=== PATIENT | female | born 1950 | race Caucasian/White ===

== ENCOUNTER 2016-11-29 11:20 | Inpatient (IN) | payer MEDICARE, OTHER ==
[~2016-11-29] VITALS: Ht 149.9 cm; Wt 76.2 kg
[~2016-11-29 11:20] MED LIST: ASPIR 8181 MG PO; COREG 3.125M3.125 MG PO; ISOSORBIDE MONO30 MG PO; LASIX20 MG PO; LIORESAL TAB 1010 MG PO; LIPITOR TAB 2020 MG PO; PLAVIX 75 MG TA75 MG PO; REMERON30 MG PO; SYNTHROID50 MCG PO; TYLENOL W/CODEIN1 E1 PO; URECHOLINE10 MG PO; ZOLOFT100 MG PO
[2016-11-29 13:55] LABS: HEMOGLOBIN 13.8 gm/dl (12.3-15.3); RED BLOOD COUNT 4.82 M/UL (4.00-5.10); WHITE BLOOD COUNT 9.2 K/UL (4.5-11.0)
[2016-11-30 04:23] LABS: HEMOGLOBIN 12.7 gm/dl (12.3-15.3); RED BLOOD COUNT 4.55 M/UL (4.00-5.10); WHITE BLOOD COUNT 7.5 K/UL (4.5-11.0)
[2016-11-30] MEDS ORDERED: BRILINTA90 MG PO (12:04)
[2016-11-30] MEDS ORDERED: INFUVITE ADULT PO (12:04)
[2016-11-30 20:50] LABS: HEMOGLOBIN 12.8 gm/dl (12.3-15.3); RED BLOOD COUNT 4.57 M/UL (4.00-5.10); WHITE BLOOD COUNT 9.9 K/UL (4.5-11.0)
[2016-12-01 04:34] LABS: HEMOGLOBIN 12.3 gm/dl (12.3-15.3); RED BLOOD COUNT 4.38 M/UL (4.00-5.10); WHITE BLOOD COUNT 9.1 K/UL (4.5-11.0)
[2016-12-02 04:29] LABS: HEMOGLOBIN 13.2 gm/dl (12.3-15.3); RED BLOOD COUNT 4.58 M/UL (4.00-5.10); WHITE BLOOD COUNT 7.9 K/UL (4.5-11.0)
[2016-12-03 04:33] LABS: HEMOGLOBIN 12.8 gm/dl (12.3-15.3); RED BLOOD COUNT 4.63 M/UL (4.00-5.10); WHITE BLOOD COUNT 7.3 K/UL (4.5-11.0)
[2016-12-04 04:20] LABS: HEMOGLOBIN 13.2 gm/dl (12.3-15.3); RED BLOOD COUNT 4.74 M/UL (4.00-5.10); WHITE BLOOD COUNT 8.4 K/UL (4.5-11.0)
[2016-12-04] MEDS ORDERED: INVANZ 1 GM VIAL1 GM IM (14:22)
[2016-12-04] MEDS ORDERED: HABITROL 21 MG P1 EA TD (14:28)
[2016-12-04] MEDS ORDERED: FLOMAX 0.4 MG0.4 MG PO (14:29)
== END 2016-12-04 15:38 | disposition home health service (06) | DRG 871 ==
LOC: ER1 11:20 → ZEROF 16:17 → PROG CARE 11-30 16:45
PROVIDERS: Emergency Medicine; Internal Medicine Interventional Cardiology; Internal Medicine Nephrology; ADMIT Internal Medicine Infectious Disease
DX: A41.51 Sepsis due to Escherichia coli [E. coli] (principal); I21.4 Non-ST elevation (NSTEMI) myocardial infarction; J69.0 Pneumonitis due to inhalation of food and vomit; J96.01 Acute respiratory failure with hypoxia; N17.9 Acute kidney failure, unspecified; N39.0 Urinary tract infection, site not specified; I50.32 Chronic diastolic (congestive) heart failure; N20.1 Calculus of ureter; S62.101P Fracture of unspecified carpal bone, right wrist, subsequent encounter for fracture with malunion; I25.10 Atherosclerotic heart disease of native coronary artery without angina pectoris; J44.9 Chronic obstructive pulmonary disease, unspecified; E03.9 Hypothyroidism, unspecified; E78.5 Hyperlipidemia, unspecified; I10 Essential (primary) hypertension; Z95.1 Presence of aortocoronary bypass graft; Z90.710 Acquired absence of both cervix and uterus; Z99.81 Dependence on supplemental oxygen; Z88.8 Allergy status to other drugs, medicaments and biological substances; F17.210 Nicotine dependence, cigarettes, uncomplicated; I25.2 Old myocardial infarction; E86.0 Dehydration; E87.6 Hypokalemia; B96.89 Other specified bacterial agents as the cause of diseases classified elsewhere; B96.20 Unspecified Escherichia coli [E. coli] as the cause of diseases classified elsewhere; N31.9 Neuromuscular dysfunction of bladder, unspecified; Z95.5 Presence of coronary angioplasty implant and graft; Z79.82 Long term (current) use of aspirin; Z79.899 Other long term (current) drug therapy; Z82.3 Family history of stroke
CPT/HCPCS: ECHO; 36415; 36600; 71010; 71020; 73110; 80048; 80053; 81001; 82436; 82550; 82553; 82570; 82803; 83605; 83735; 83874; 83880; 84132; 84133; 84156; 84300; 84443; 84481; 84484; 85025; 85027; 85610; 85730; 87040; 87077; 87086; 87186; 93005; 93306; 94640; 94664; 96365; 96367; 96375; 99291; 99292; J0696; J1335; J1644; J1940; J1956; J2920; J2930; J7030; J7040; J7050; Q0162

== ENCOUNTER → 2017-02-08 | Outpatient (CLI) | payer MEDICARE, OTHER ==
[~2017-02-08] MED LIST changes: +BRILINTA90 MG PO; +FLOMAX 0.4 MG0.4 MG PO; +HABITROL 21 MG P1 EA TD; +INFUVITE ADULT PO; +INVANZ 1 GM VIAL1 GM IM
== END ==
LOC: HEART 5 09:59
DX: J18.9 Pneumonia, unspecified organism (principal); R06.02 Shortness of breath; F17.210 Nicotine dependence, cigarettes, uncomplicated; R94.2 Abnormal results of pulmonary function studies
CPT/HCPCS: 94060; 94729